=== PATIENT | female | born 1960 ===

== ENCOUNTER 2016-12-06 09:59 | Emergency (ER) | payer OTHER ==
[~2016-12-06] VITALS: Ht 157.5 cm; Wt 68.0 kg
--- NOTE | 2016-12-06 11:26 | ED ANKLE/FOOT INJURY COMPLAINT ---
History of Present Illness General Chief Complaint: Foot or Ankle Injury Stated Complaint: RT FOOT PPAIN Source: patient Exam Limitations: no limitations Vital Signs & Intake/Output Vital Signs & Intake/Output Vital Signs Date Time Temp Pulse Resp B/P Pulse O2 O2 Flow FiO2 Ox Delivery Rate 12/06 1016 97.6 90 18 142/93 98 Room Air Allergies Coded Allergies: erythromycin base (DOESNT LIKE 12/06/16) Reconcile Medications Naproxen (Naprosyn) 500 MG TABLET 1 TAB PO BID PRN inflammation/pain Triage Note: C/O R FOREFOOT PAIN X 4 DAYS. STATES SHE WALKED FOR 5 HOURS ON 11/30 DURING 'S JANUARY IN [facility]. DENIES FALL OR INJURY. ALSO STATES AREA IS SWOLLEN, BUNIONECTOMY 20 YEARS AGO. Triage Nurses Notes Reviewed? yes Occurred: 4 days Duration: day(s): (4) Timing: remote history Severity: moderate Severity Numbers: 8 Pain/Injury Location: Right: Foot. Method of Injury: unknown Modifying Factors: Improves With: immobilization. Worsens With: movement. HPI: Patient is a 56-year-old female presenting to the emergency department with chief complaint of right foot pain that started 4 days ago progressively getting worse. Pain is worse with weightbearing and movement. She also noticed moderate swelling. She reports that she was marching over the weekend and was fine and then a few days after the marching she developed the pain. Denies any specific injury. Positive history of bunion surgery over that area 20 years ago. Denies any fevers chills nausea vomiting chest pain or shortness of breath. No numbness or tingling. She has been using crutches and have 2 to help stabilize her pain and swelling. Strength also been elevating and icing without relief. She tried calling several podiatrists overnight and today. Past History Travel History Traveled to [place] past 21 day No Medical History Any Pertinent Medical History? see below for history Neurological: NONE EENT: NONE Cardiovascular: NONE Respiratory: NONE Gastrointestinal: NONE Hepatic: NONE Renal: NONE Musculoskeletal: NONE Psychiatric: NONE Endocrine: NONE Surgical History Surgical History: right bunion surgery Psychosocial History What is your primary language Icelandic Tobacco Use: Never used ETOH Use: denies use Family History Hx Contributory? No Review of Systems Review of Systems Constitutional: Reports: no symptoms. Comments Review of systems: See HPI, All other systems negative. Constitutional, no chills fever or weight loss HEENT: No visual changes no sore throat no congestion Cardiovascular: No chest pain ,palpitation , orthopnea or ankle swelling Skin, no jaundice no rashes Respiratory: No dyspnea cough sputum or hemoptysis GI: No nausea no vomiting Muscle skeletal: no back pain, no neck pain, Neurologic: No numbness Immunology: No splenectomy or history of AIDS Physical Exam Physical Exam General Appearance: well developed/nourished, no apparent distress, alert, awake , comfortable Leg/Knee/Thigh Left: normal range of motion, normal inspection Comments: Well-developed well-nourished person in no acute distress HEENT: Pupils equally round and reactive to light and accommodation. Nose is atraumatic. Neck: Normal inspection Cardiovascular: Pedal pulses are 2+ bilaterally. Respiratory: No respiratory distress. Extremity: No calf tenderness to palpation bilaterally. Tender to palpation of the dorsum of the right foot with moderate edema present. There is an old surgical scar present just proximal to the right first toe. No erythema. Limited range of motion of right first toe secondary to pain. No pain to palpation over all other digits. Full range of motion of right ankle without difficulty or pain. Nontender to palpation over both right medial and lateral malleolus. No tenderness to palpation over the right calf. Full range of motion of right patella. Neuro: Alert oriented x3, motor sensory normal in the lower extremities bilaterally. Skin: Moderate edema noted on the dorsum of the right foot, tender to palpation over this area otherwise No appreciable rash on exposed skin, skin is warm and dry. Psych: Mood and affect is normal, memory and judgment is normal. Progress Differential Diagnosis: cellulitis, fracture, dislocation, sprain, contusion, compartmental syndrome Plan of Care: Orders Procedure Date/time Status XRY-FOOT COMPLETE, RIGHT 12/06 1125 Active Diagnostic Imaging: Viewed by Me: Radiology Read. Discussed w/RAD: Radiology Read. Radiology Impression: PATIENT: SIMEON SINCLAIR PRESENT AGE: 56 PATIENT ACCOUNT NO: [id number] : 62 LOCATION: [facility] ORDERING PHYSICIAN: NORMAN BINGHAM SERVICE DATE: 12/06/16 EXAM TYPE: RAD - XRY-FOOT COMPLETE, R EXAMINATION: XR FOOT, RIGHT CLINICAL INFORMATION: Pain after marching 45 hours COMPARISON: None TECHNIQUE: AP, lateral, and oblique views of the right foot. FINDINGS: Osseous alignment is anatomic. No acute fracture is seen. There is moderate degenerative change at the first metatarsophalangeal joint with joint space narrowing and osteophytosis. Dorsal soft tissue swelling is noted overlying the mid to distal foot. IMPRESSION: No fracture identified. Dorsal soft tissue swelling of the mid to distal foot. DICTATED BY: BOB ARREOLA MD DATE/TIME DICTATED:12/06/161144 Comments: Declines pain medication on arrival. Patient informed of x-ray results. She'll continue wearing the boot and using crutches she has. Naproxen sent to her pharmacy. Educated on wresting icing and elevating. She'll follow up with podiatry next week. Departure Departure Time of Disposition: 1157 Disposition: HOME OR SELF CARE Condition: Stable Clinical Impression Primary Impression: Contusion Qualifiers: Encounter type: initial encounter Contusion area: foot Laterality: right Qualified Code: S90.31XA - Contusion of right foot, initial encounter Referrals: [facility]SE,SONIA (PCP/Family) CLYDE BUTLER DPM Additional Instructions: Follow-up with podiatry call to make an appointment for next week. Continue wearing boot. Rest ice and elevate her foot as much as possible. Use crutches for support. Take anti-inflammatory to help with inflammation and pain. Departure Forms: Customer Survey General Discharge Information Prescriptions: Current Visit Scripts Naproxen (Naprosyn) 1 TAB PO BID PRN inflammation/pain #30 TAB
--- NOTE | 2016-12-06 11:53 | RADIOLOGY REPORT ---
EXAMINATION: XR FOOT, RIGHT CLINICAL INFORMATION: Pain after marching 45 hours COMPARISON: None TECHNIQUE: AP, lateral, and oblique views of the right foot. FINDINGS: Osseous alignment is anatomic. No acute fracture is seen. There is moderate degenerative change at the first metatarsophalangeal joint with joint space narrowing and osteophytosis. Dorsal soft tissue swelling is noted overlying the mid to distal foot. IMPRESSION: No fracture identified. Dorsal soft tissue swelling of the mid to distal foot.
[2016-12-06] MEDS ORDERED: NAPROSYN500 M1 PO (12:02)
[2016-12-06 12:22] VITALS: BP 140/77
== END 2016-12-06 12:22 ==
LOC: ERH 09:59
DX: S90.31XA Contusion of right foot, initial encounter (principal); X58.XXXA Exposure to other specified factors, initial encounter
CPT/HCPCS: 73630-RT